=== PATIENT | female | born 1990 | race Caucasian/White ===

== ENCOUNTER 2018-01-22 18:08 | Outpatient (CLI) | payer MEDICAID ==
[2018-01-22 19:36] LABS: APPEARANCE,URINE CLOUDY; BILIRUBIN,URINE NEGATIVE (NEGATIVE); COLOR,URINE YELLOW; GLUCOSE, URINE NEGATIVE (NEGATIVE); KETONES,URINE NEGATIVE (NEGATIVE); LEUKOCYTE ESTERASE,URINE NEGATIVE (NEGATIVE); NITRITE,URINE NEGATIVE (NEGATIVE); PROTEIN,URINE NEGATIVE (NEGATIVE); URINE SPECIFIC GRAVITY 1.011; UROBILINOGEN,URINE NEGATIVE mg/dL (<2.0)
[2018-01-22 19:51] LABS: URINE AMPHETAMINES SCREEN NEGATIVE; URINE BARBITURATES SCREEN NEGATIVE; URINE BENZODIAZEPINES SCREEN NEGATIVE; URINE COCAINE SCREEN NEGATIVE; URINE MARIJUANA (THC) SCREEN NEGATIVE; URINE METHADONE SCREEN NEGATIVE; URINE PHENCYCLIDINE SCREEN NEGATIVE
[2018-01-22 21:13] LABS: CHLAM PCR NOT DETECTED (NOT DETECT); GON PCR NOT DETECTED (NOT DETECT)
== END 2018-01-22 20:40 | disposition home or self-care (01) ==
LOC: LC 18:08
PROVIDERS: ATTEND Obstetrics & Gynecology
PROC: 4A1HXCZ Monitoring of Products of Conception, Cardiac Rate, External Approach (ICD-10-PCS; principal; 2018-01-22)
DX: O26.893 Other specified pregnancy related conditions, third trimester (principal); M54.9 Dorsalgia, unspecified; Z3A.39 39 weeks gestation of pregnancy
CPT/HCPCS: 59025; 80307; 81005; 87081; 87491; 87591

== ENCOUNTER 2018-01-26 06:57 | Inpatient (IN) | payer MEDICAID ==
[2018-01-26] MEDS ORDERED: FENTANYL CITRATE INJ/PF 100 MCG/2 ML AMPUL ONE (07:16)
[2018-01-26] MEDS ORDERED: FENTANYL CITRATE INJ/PF 100 MCG/2 ML AMPUL IV ONE (07:18)
[2018-01-26] MEDS ORDERED: RINGERS SOLUTION,LACTATED 1,000 ML IV ONE (07:19)
[2018-01-26] MEDS ORDERED: RINGERS SOLUTION,LACTATED 1,000 ML IV PRN (07:19)
--- NOTE | 2018-01-26 07:46 | Admission Physical ---
Datetime Report Generated by CPN: 01/26/2018 07:46 CURRENT ADMISSION Chief Complaint: Uterine Contractions Indication for Induction: Not Applicable Admit Impression : Term, Intrauterine ; Active Labor Admit Plan: Admit to Unit; Initiate Labor Protocol ALLERGIES Medication Allergies: No Medication Allergies: No Known Allergies (08/07/2014) Latex: No Latex Allergies Food Allergies: none Environmental Allergies: none OBSTETRICAL HISTORY EDC: 01/25/2018 00:00 : 3 Para: 2 Term: 2 : 0 SAB: 0 IAB: 0 Ectopic: 0 Livin Cesareans: 0 VBACs: 0 Multiple Births: 0 Gestational Diabetes: No Rh Sensitization: No Incompetent Cervix: No LORETTA: No Infertility: No ART Treatment: No Uterine Anomaly: No IUGR: No Hx Previous C/S: No Macrosomia: No Hx Loss/Stillborn: No PIH: No Hx : No Placenta Previa/Abruption: No Depression/PP Depression: No PTL/PROM: No Post Hemorrhage: No Obstetrical History Comments: g1: 2009, 39 weeks, 5#14oz, Female, Vaginal, epidural, no complications g2: 2012, 40 weeks, 6311oz, Male, Vaginal, no anesthesia, no complications SEE RECORDS Alcohol: No Marijuana : No Cocaine: No Other Illicit Drugs: Yes Illicit Drug Comments: Pt has history of heroin and opiate addiction, currently taking subutex Cigarettes: Current Everyday Smoker. 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 Heart Disease: No Hosp/Surgery: Yes Autoimmune Disorder: No Anesthetic Complications: No Kidney Disease: No Abnormal Pap Smear: No Neuro/Epilepsy: Yes Psychiatric Disorders: No Other Medical Diseases: No Hepatitis/Liver Disease: Yes Significant Family History: No Varicosities/Phlebitis: No Trauma/Violence : No Thyroid Dysfunction: No Medical History Comments: Headaches/ falseteeth/hep C INFECTIOUS HISTORY Gonorrhea: No Genital Herpes: No Chlamydia: No Tuberculosis: No Syphilis: No Hepatitis: Yes HIV/AIDS Exposure: No Rash or Viral Illness: No HPV: Yes PHYSICAL EXAM General: Normal HEENT: Normal Neurologic: Normal Thyroid: Deferred Heart: Normal Lungs: Normal Breast: Deferred Back: Normal Abdomen: Normal Genitourinary Exam: Normal Extremities: Normal DTRs: Normal Pelvic Type: Adequate Vital Signs: Reviewed VAGINAL EXAM Dilatation: 9 Effacement: 100 Station: 1 Contraction Comments: q 2-3 MEMBRANES Membranes: Intact FETUS A EGA: 40.1 Monitoring: External US FHR- Baseline: 140 Variability: Moderate 6-25bpm Accelerations: 10X10 Decelerations: None FHR Category: Category I Presentation: Vertex Admit Comment: 27yo at 40+1ega presents in active labor. She was 9cm upon prosentation. GBS negative done at [facility]. Pelvis proven to 6#11oz. Pt has had very limited care. Only one visit at [facility]. H/o IV drug use now on subutex. Hep C positive. ALso with LGSIL pap smear - needs colpo pp. Smoker. H/o PPD. Anticipate . Reviewed pain meds options limited due to advanced dilation. Pt counseled and desires pudendal block. PLANS FOR LABOR AND DELIVERY Labor and Delivery: None Pain Management: None Feeding Preference: Formula Benefit of Breast Feed Discussed: Yes Circumcision: N/A INFORMED CONSENT Informed Consent Obtained: Vaginal Delivery; Risks, Benefits and Alternatives Discussed Signature: with User ID: [email or web address]
[2018-01-26] MEDS ORDERED: DIBUCAINE 1% OINTMENT 28 GM TP PRN (07:53)
[2018-01-26] MEDS ORDERED: PSEUDOEPHEDRINE HCL 30 MG TABLET PO PRN (07:53)
[2018-01-26] MEDS ORDERED: ACETAMINOPHEN 325 MG TABLET PO PRN (07:53)
[2018-01-26] MEDS ORDERED: MAGNESIUM HYDROXIDE SUSP 30 ML UDCUP PO PRN (07:53)
[2018-01-26] MEDS ORDERED: GLYCERIN/WITCH HAZEL LEAF 1 EACH MED..PAD TP PRN (07:53)
[2018-01-26] MEDS ORDERED: NA PHOS,M-B/NA PHOS,DI-BA (ADULT) 133 ML ENEMA PR PRN (07:53)
[2018-01-26] MEDS ORDERED: PROMETHAZINE HCL 25 MG TABLET PO PRN (07:53)
[2018-01-26] MEDS ORDERED: ZOLPIDEM TARTRATE 5 MG TABLET PO PRN (07:53)
[2018-01-26] MEDS ORDERED: PROMETHAZINE HCL 25 MG SUPP.RECT PR PRN (07:53)
[2018-01-26] MEDS ORDERED: DIPHENHYDRAMINE HCL 25 MG CAPSULE PO PRN (07:53)
[2018-01-26] MEDS ORDERED: DIPH/PERTUSS(ACELL)/TETANUS VAC/PF 0.5 ML SYR (>=10YO) IM PRN (07:53)
[2018-01-26] MEDS ORDERED: ACETAMINOPHEN WITH CODEINE #3 TABLET PO PRN (07:53)
[2018-01-26] MEDS ORDERED: MEASLES,MUMPS&RUBELLA VACC/PF 0.5 ML VIAL SUBCUT PRN (07:53)
[2018-01-26] MEDS ORDERED: PROMETHAZINE HCL INJ 25 MG/1 ML VIAL IV PRN (07:53)
[2018-01-26] MEDS ORDERED: BENZOCAINE/MENTHOL AEROSOL SPRAY 56 ML TOP PRN (07:53)
[2018-01-26] MEDS ORDERED: OXYTOCIN/NORMAL SALINE 20 UNIT/1,000 ML RTUINJ IV PRN (07:53)
[2018-01-26] MEDS ORDERED: OXYTOCIN/NORMAL SALINE 20 UNIT/1,000 ML RTUINJ ONE (08:38)
[2018-01-26] MEDS ORDERED: MISOPROSTOL 0.2 MG TABLET ONE (08:38)
[2018-01-26] MEDS ORDERED: LIDOCAINE 1% INJ-PF (10 MG/ML) 30 ML SDV ONE (08:38)
[2018-01-26] MEDS ORDERED: PENICILLIN G-K 5 MILLION UNIT VIAL ONE (08:39)
[2018-01-26] MEDS ORDERED: OXYTOCIN 10 UNIT/ML VIAL ONE (08:39)
[2018-01-26 08:47] LABS: ABSOLUTE BASOPHILS # (AUTO) 0.1 10^3/uL (0.0-0.2); ABSOLUTE EOSINOPHILS # (AUTO) 0.1 10^3/uL (0.0-0.6); ABSOLUTE LYMPHOCYTES (AUTO) 2.2 10^3/uL (0.5-4.7); ABSOLUTE MONOCYTES (AUTO) 0.3 10^3/uL (0.1-1.4); ABSOLUTE NEUT (AUTO) 9.6 10^3/uL (1.7-8.2); BASOPHILS % (AUTO) 0.5 % (0-2); EOSINOPHILS % (AUTO) 0.5 % (0-6); HEMATOCRIT 33.4 % (36.0-47.0); HEMOGLOBIN 10.7 g/dL (12.0-15.5); MEAN CORPUSCULAR HEMOGLOBIN 26.4 pg (27.0-33.4); MEAN CORPUSCULAR HGB CONC 32.1 g/dL (32.0-36.0); MEAN CORPUSCULAR VOLUME 82 fl (80-97); MONOCYTES % (AUTO) 2.5 % (3-13); PLATELET COUNT 168 10^3/uL (150-450); RED BLOOD COUNT 4.05 10^6/uL (3.72-5.28); RED CELL DISTRIBUTION WIDTH 15.5 % (11.5-14.0); SEGMENTED NEUTROPHILS % (AUTO) 78.5 % (42-78); TOTAL CELLS COUNTED % (AUTO) 100 %; WHITE BLOOD COUNT 12.2 10^3/uL (4.0-10.5)
[2018-01-26 09:08] LABS: ALANINE AMINOTRANSFERASE 40 U/L (9-52); ALBUMIN 3.3 g/dL (3.5-5.0); ALKALINE PHOSPHATASE 365 U/L (38-126); ANION GAP 12 (5-19); ASPARTATE AMINO TRANSFERASE 33 U/L (14-36); BILIRUBIN,DIRECT 0.3 mg/dL (0.0-0.4); BILIRUBIN,TOTAL 0.3 mg/dL (0.2-1.3); BLOOD UREA NITROGEN 7 mg/dL (7-20); CALCIUM 8.6 mg/dL (8.4-10.2); CARBON DIOXIDE 18 mmol/L (22-30); CHLORIDE 108 mmol/L (98-107); GLUCOSE 96 mg/dL (75-110); POTASSIUM 4.3 mmol/L (3.6-5.0); SODIUM 137.6 mmol/L (137-145); TOTAL PROTEIN 6.4 g/dL (6.3-8.2)
[2018-01-26 09:37] LABS: APPEARANCE,URINE CLOUDY; BILIRUBIN,URINE NEGATIVE (NEGATIVE); COLOR,URINE RED; GLUCOSE, URINE NEGATIVE (NEGATIVE); KETONES,URINE NEGATIVE (NEGATIVE); LEUKOCYTE ESTERASE,URINE NEGATIVE (NEGATIVE); NITRITE,URINE NEGATIVE (NEGATIVE); PROTEIN,URINE 100 mg/dL (NEGATIVE); URINE SPECIFIC GRAVITY 1.012; UROBILINOGEN,URINE NEGATIVE mg/dL (<2.0)
[2018-01-26] MEDS: PRENATAL VITAMIN W DHA CAPSULE PO SCH (09:45)
[2018-01-26] MEDS: DOCUSATE SODIUM 100 MG CAPSULE PO SCH ×2 (09:45→18:23)
[2018-01-26] MEDS: FERROUS SULFATE 325 MG TABLET PO SCH ×2 (09:45→18:23)
[2018-01-26] MEDS: SENNOSIDES/DOCUSATE 8.6-50 MG 1 EACH TABLET PO SCH (09:45)
[2018-01-26 09:51] LABS: URINE AMPHETAMINES SCREEN NEGATIVE; URINE BARBITURATES SCREEN NEGATIVE; URINE BENZODIAZEPINES SCREEN NEGATIVE; URINE COCAINE SCREEN NEGATIVE; URINE MARIJUANA (THC) SCREEN NEGATIVE; URINE METHADONE SCREEN NEGATIVE; URINE PHENCYCLIDINE SCREEN NEGATIVE
[2018-01-26] MEDS: ACETAMINOPHEN WITH CODEINE #3 TABLET PO PRN ×3 (09:56→20:30)
[2018-01-26] MEDS ORDERED: FAMOTIDINE 20 MG TABLET PO SCH (10:00)
[2018-01-26] MEDS: IBUPROFEN 800 MG TABLET PO SCH ×2 (14:16→21:51)
[2018-01-27] MEDS: ACETAMINOPHEN WITH CODEINE #3 TABLET PO PRN ×2 (00:37→09:19)
[2018-01-27] MEDS: IBUPROFEN 800 MG TABLET PO SCH (05:41)
[2018-01-27 08:25] VITALS: BP 109/77
[2018-01-27 08:44] LABS: HEMATOCRIT 28.2 % (36.0-47.0); HEMOGLOBIN 9.2 g/dL (12.0-15.5); MEAN CORPUSCULAR HEMOGLOBIN 26.6 pg (27.0-33.4); MEAN CORPUSCULAR HGB CONC 32.6 g/dL (32.0-36.0); MEAN CORPUSCULAR VOLUME 82 fl (80-97); PLATELET COUNT 164 10^3/uL (150-450); RED BLOOD COUNT 3.46 10^6/uL (3.72-5.28); RED CELL DISTRIBUTION WIDTH 15.4 % (11.5-14.0)
--- NOTE | 2018-01-27 09:07 | PDOC PROGRESS REPORT ---
Subjective-OB Progress Note for:: 01/27/18 Subjective: Holding baby, want to go home today, does not have any Subutex to take, not sure when baby is going, feels good, bottle feeding, ambulating, scant bleeding Physical Exam (OB) Vital Signs: Temp Pulse Resp BP Pulse Ox 97.8 F 73 16 109/77 98 01/27/18 07:36 01/27/18 07:36 01/27/18 07:36 01/27/18 07:36 01/27/18 07:36 Intake & Output 01/26/18 01/27/18 01/28/18 06:59 06:59 06:59 Intake Total 500 Balance 500 Weight 57.153 kg - PIH/Pre-Eclampsia Headache: Absent - Lochia Lochia Amount: Scant < 10 ml Lochia Color: Rubra/Red - Abdomen Description: Soft, Flat Hernia Present: No Fundal Description: Firm, Midline Fundal Height: u/u - u/2 Objective-Diagnostic Laboratory: 01/27/18 07:30 01/26/18 08:24 01/26/18 01/26/18 01/26/18 08:24 08:24 09:00 WBC RBC Hgb Hct MCV MCH MCHC RDW Plt Count Sodium 137.6 Potassium 4.3 Chloride 108 H Carbon Dioxide 18 L Anion Gap 12 BUN 7 Creatinine 0.43 L Est GFR ( Amer) > 60 Est GFR (Non-Af Amer) > 60 Glucose 96 Calcium 8.6 Total Bilirubin 0.3 AST 33 ALT 40 Alkaline Phosphatase 365 H Total Protein 6.4 Albumin 3.3 L Urine Color RED Urine Appearance CLOUDY Urine pH 6.0 Ur Specific [place] 1.012 Urine Protein 100 H Urine Glucose (UA) NEGATIVE Urine Ketones NEGATIVE Urine Blood LARGE H Urine Nitrite NEGATIVE Ur Leukocyte Esterase NEGATIVE Urine WBC (Auto) 42 Urine RBC (Auto) >182 Blood Type O POSITIVE Antibody Screen NEGATIVE 01/27/18 07:30 WBC 13.0 H RBC 3.46 L Hgb 9.2 L Hct 28.2 L MCV 82 MCH 26.6 L MCHC 32.6 RDW 15.4 H Plt Count 164 Sodium Potassium Chloride Carbon Dioxide Anion Gap BUN Creatinine Est GFR ( Amer) Est GFR (Non-Af Amer) Glucose Calcium Total Bilirubin AST ALT Alkaline Phosphatase Total Protein Albumin Urine Color Urine Appearance Urine pH Ur Specific [place] Urine Protein Urine Glucose (UA) Urine Ketones Urine Blood Urine Nitrite Ur Leukocyte Esterase Urine WBC (Auto) Urine RBC (Auto) Blood Type Antibody Screen Assessment and Plan(PN) - Assessment and Plan (1) Vaginal delivery Is this a current diagnosis for this admission?: Yes (2) Precipitous delivery Is this a current diagnosis for this admission?: Yes (3) Smoker Is this a current diagnosis for this admission?: Yes (4) Limited care Qualifiers: Trimester: unspecified trimester Qualified Code(s): O09.30 - Supervision of with insufficient care, unspecified trimester Is this a current diagnosis for this admission?: Yes (5) complicated by subutex maintenance, antepartum Is this a current diagnosis for this admission?: Yes (6) Low grade squamous intraepith lesion on cytologic smear cervix (lgsil) Is this a current diagnosis for this admission?: Yes (7) Hepatitis C Qualifiers: Viral hepatitis chronicity: unspecified Is this a current diagnosis for this admission?: Yes - Time Spent with Patient Time with patient: Less than 15 minutes Smoking Education Provided: Over 3 minutes Medications reviewed and adjusted accordingly: Yes - Disposition Anticipated Discharge: Home Within: within 24 hours
[2018-01-27] MEDS: SENNOSIDES/DOCUSATE 8.6-50 MG 1 EACH TABLET PO SCH (09:19)
[2018-01-27] MEDS: FERROUS SULFATE 325 MG TABLET PO SCH (09:19)
[2018-01-27] MEDS: DOCUSATE SODIUM 100 MG CAPSULE PO SCH (09:19)
[2018-01-27] MEDS: PRENATAL VITAMIN W DHA CAPSULE PO SCH (09:19)
--- NOTE | 2018-01-27 09:23 | PDOC DISCHARGE SUMMARY ---
Final Diagnosis Discharge Date: 01/27/18 - Final Diagnosis (1) Vaginal delivery Is this a current diagnosis for this admission?: Yes (2) Precipitous delivery Is this a current diagnosis for this admission?: Yes (3) Smoker Is this a current diagnosis for this admission?: Yes (4) Limited care Is this a current diagnosis for this admission?: Yes (5) complicated by subutex maintenance, antepartum Is this a current diagnosis for this admission?: Yes (6) Low grade squamous intraepith lesion on cytologic smear cervix (lgsil) Is this a current diagnosis for this admission?: Yes (7) Hepatitis C Is this a current diagnosis for this admission?: Yes Discharge Data - Discharge Medication Home Medications: Buprenorphine HCl [Subutex 8 mg Sublingual Tablet] 1 tab SL BID 01/22/18 Vit/Iron Fum/Folic AC [ Tablet] 1 each PO DAILY 01/22/18 Gestational Age: 40.1 Reason(s) for Admission: Onset of Labor Procedures: Ultrasound Intrapartum Procedure(s): Spontaneous Vaginal Delivery - [place] Data Baby 1 Female at 1 minute: 9 at 5 minutes: 9 Weight: 2.863 kg Home with Mother: No Complications: Yes - subutex - Diagnosis Test Laboratory: Temp Pulse Resp BP Pulse Ox 97.8 F 73 16 109/77 98 01/27/18 07:36 01/27/18 07:36 01/27/18 07:36 01/27/18 07:36 01/27/18 07:36 01/26/18 01/26/18 01/27/18 08:24 09:00 07:30 RBC 4.05 3.46 L Hgb 10.7 L 9.2 L Hct 33.4 L 28.2 L Urine Opiates Screen NEGATIVE - Discharge information/Instructions Discharge Activity: Activity As Tolerated, No Lifting Over 10 Pounds, Pelvic Rest Discharge Diet: As Tolerated, Regular Disposition: HOME, SELF-CARE Follow up with: [facility] in: 2, Weeks
[2018-01-27 21:07] LABS: HEPATITIS C QUANTITATION 760 IU/mL (.)
[2018-01-28 13:02] LABS: HEPATITIS C LOG10 2.881 (.)
== END 2018-01-27 12:04 | disposition home or self-care (01) | DRG 774 ==
LOC: LC 06:57 → LR 07:02 → 2S 09:20
PROVIDERS: ADMIT Student in an Organized Health Care Education/Training Program; ATTEND Student in an Organized Health Care Education/Training Program
PROC: 10E0XZZ Delivery of Products of Conception, External Approach (ICD-10-PCS; principal; 2018-01-26)
PROC: 4A1HXCZ Monitoring of Products of Conception, Cardiac Rate, External Approach (ICD-10-PCS; 2018-01-26)
DX: O62.3 Precipitate labor (principal); O98.413 Viral hepatitis complicating pregnancy, third trimester; O99.324 Drug use complicating childbirth; F11.20 Opioid dependence, uncomplicated; Z37.0 Single live birth; B19.20 Unspecified viral hepatitis C without hepatic coma; O28.2 Abnormal cytological finding on antenatal screening of mother; O99.334 Smoking (tobacco) complicating childbirth; F17.210 Nicotine dependence, cigarettes, uncomplicated; O99.513 Diseases of the respiratory system complicating pregnancy, third trimester; J45.909 Unspecified asthma, uncomplicated; Z3A.40 40 weeks gestation of pregnancy
CPT/HCPCS: 36415; 80053; 80307; 81001; 85025; 85027; 86592; 86850; 86900; 86901; 87522; J2540; J2590; J3010; J3490

== ENCOUNTER 2019-12-09 21:51 | Emergency (ER) | payer SELFPAY ==
[2019-12-09] MEDS ORDERED: PREDNISONE 20 MG TABLET PO ONE (23:53)
--- NOTE | 2019-12-09 23:54 | ER Document Report ---
HPI - HPI Time Seen by Provider: 12/09/19 23:48 Pain Level: 2 Notes: 29-year-old female patient presenting to the emergency department with 3-week history of cough. She states that she had influenza about 1 week ago. She states that her symptoms have resolved except for her persistent cough. She states she is coughing up yellowish phlegm. She denies any fevers. Does report history of asthma. - REPRODUCTIVE Reproductive: DENIES: : Past Medical History - General Information source: Patient - Social History Smoking Status: Current Every Day Smoker Family History: CVA, DM, Hypertension, Malignancy, Thyroid Disfunction Patient has suicidal ideation: No Patient has homicidal ideation: No Pulmonary Medical History: Reports: Hx Asthma Neurological Medical History: Reports: Hx Migraine Musculoskeletal Medical History: Reports Hx Arthritis, Reports Hx Musculoskeletal Deformity, Reports Hx Musculoskeletal Trauma Psychiatric Medical History: Reports: Hx Anxiety, Hx Depression Past Surgical History: Reports: Hx Oral Surgery - Most teeth due to decay - Immunizations Immunizations up to date: Yes Hx Diphtheria, Pertussis, Tetanus Vaccination: Yes Vertical Provider Document - CONSTITUTIONAL Notes: PHYSICAL EXAMINATION: GENERAL: Well-appearing, well-nourished and in no acute distress. HEAD: Atraumatic, normocephalic. EYES: Pupils equal round extraocular movements intact, conjunctiva are normal. ENT: Nares patent NECK: Normal range of motion LUNGS: No respiratory distress, lung sounds clear and equal bilaterally. Musculoskeletal: Normal range of motion NEUROLOGICAL: Normal speech, normal gait. PSYCH: Normal mood, normal affect. SKIN: Warm, Dry, normal turgor, no rashes or lesions noted. - INFECTION CONTROL TRAVEL OUTSIDE OF THE [place] IN LAST 30 DAYS: No Course - Re-evaluation Re-evalutation: Patient appears well, nontoxic. Lung sounds clear and equal bilaterally. Vital signs within normal limits. Will start patient on prednisone. I did discuss the option of getting a chest x-ray with the patient although she is young, healthy and has had no fever so I feel it is unlikely that she has a pneumonia. I educated her that the upper respiratory virus with the cough is lasting upwards of 1 month. Patient is agreeable to discharge home on prednisone and continue taking guaifenesin. - Vital Signs Vital signs: Temp Pulse Resp BP Pulse Ox 98.4 F 103 H 16 102/69 98 12/09/19 22:30 12/09/19 22:30 12/09/19 22:30 12/09/19 22:30 12/09/19 22:30 Discharge - Discharge Clinical Impression: Viral upper respiratory infection Condition: Stable Disposition: HOME, SELF-CARE Additional Instructions: Your symptoms are most likely due to a viral infection it should resolve over the next 7-14 days. You should take [id number] guanfacine per bottle instructions to help thin the mucus. For nasal congestion: I would recommend that you get [id number] oxymetazoline also known is afrin. Use only per bottle instructions and be sure to never use this for more than 3 days if you can develop severe rebound congestion. You may also use tylenol or ibuprofen as needed for aches and thorat discomfort. Please be sure to drink plenty of fluids and get rest. Return to the emergency department he began having difficulty breathing, chest pain, persistent vomiting, or any other symptoms that are concerning to you. Prescriptions: Prednisone [Deltasone 20 mg Tablet] 3 tab PO DAILY 4 Days #12 tablet Forms: Return to Work Referrals: ARNOLDO CHAHAL MD [PEDIATRICS] - Follow up as needed
[2019-12-09 23:56] VITALS: BP 105/72
== END 2019-12-10 00:08 | disposition home or self-care (01) ==
LOC: ER 21:51
DX: J06.9 Acute upper respiratory infection, unspecified (principal); B97.89 Other viral agents as the cause of diseases classified elsewhere; F17.200 Nicotine dependence, unspecified, uncomplicated; J45.909 Unspecified asthma, uncomplicated
CPT/HCPCS: 99283; J7512

== ENCOUNTER 2020-01-13 21:20 | Emergency (ER) | payer SELFPAY ==
[2020-01-13 21:28] VITALS: BP 95/62
--- NOTE | 2020-01-13 21:53 | ER Document Report ---
ED General - General Chief Complaint: Other Stated Complaint: NEEDS A DR NOTE FOR WORK Time Seen by Provider: 01/13/20 21:45 Notes: 29-year-old female who had nausea and diarrhea for 2 days, it stopped 2 days ago and she is now completely asymptomatic presents the emergency department because she works in the food and nutrition teacher industry and is not allowed to return without a work note per her boss. Denies blood, denies pain currently or previously, denies current symptoms. TRAVEL OUTSIDE OF THE [place] IN LAST 30 DAYS: No - Related Data Allergies/Adverse Reactions: No Known Allergies Allergy (Verified 01/26/18 08:20) Past Medical History - General Information source: Patient - Social History Smoking Status: Current Every Day Smoker Frequency of alcohol use: None Drug Abuse: None Family History: CVA, DM, Hypertension, Malignancy, Thyroid Disfunction Patient has suicidal ideation: No Patient has homicidal ideation: No Pulmonary Medical History: Reports: Hx Asthma Neurological Medical History: Reports: Hx Migraine Musculoskeletal Medical History: Reports Hx Arthritis, Reports Hx Musculoskeletal Deformity, Reports Hx Musculoskeletal Trauma Psychiatric Medical History: Reports: Hx Anxiety, Hx Depression Past Surgical History: Reports: Hx Oral Surgery - Most teeth due to decay - Immunizations Immunizations up to date: Yes Hx Diphtheria, Pertussis, Tetanus Vaccination: Yes Review of Systems - Review of Systems Constitutional: No symptoms reported EENT: No symptoms reported Cardiovascular: No symptoms reported Respiratory: No symptoms reported Gastrointestinal: See HPI Physical Exam - Vital signs Vitals: Temp Pulse Resp BP Pulse Ox 98.1 F 105 H 17 95/62 L 100 01/13/20 21:24 01/13/20 21:24 01/13/20 21:24 01/13/20 21:24 01/13/20 21:24 Interpretation: Tachycardic - Notes Notes: GENERAL: Alert, interacts well. No acute distress. HEAD: Normocephalic, atraumatic EYES: Pupils equal, round and reactive to light, extraocular movements intact. ENT: Oral mucosa moist, tongue midline. NECK: Full range of motion, supple, trachea midline. LUNGS: Clear to auscultation bilaterally, no wheezes, rales or rhonchi, no respiratory distress. HEART: Regular rate and rhythm, no murmurs, gallops, rubs. ABDOMEN: Soft, nontender, nondistended, bowel sounds present in all 4 quadrants. EXTREMITIES: Moves all 4 extremities spontaneously. NEUROLOGICAL: Alert and oriented x3, normal speech. PSYCH: Normal mood, normal affect. SKIN: Warm, Dry, normal turgor, no rashes or lesions noted. Course - Re-evaluation Re-evalutation: 01/13/20 21:51 Patient is completely asymptomatic, all symptoms resolved 2 days ago. No indication for blood work at this time. Patient is quite small, suspect her blood pressure is normal for her. Will be discharged home and cleared for work. 01/13/20 21:51 Discussed with patient that if she develops recurrent nausea she may want to consider taking a test. Patient is agreeable to buying an [id number] test if nausea returns. - Vital Signs Vital signs: Temp Pulse Resp BP Pulse Ox 98.1 F 105 H 17 95/62 L 100 01/13/20 21:24 01/13/20 21:24 01/13/20 21:24 01/13/20 21:24 01/13/20 21:24 Discharge - Discharge Clinical Impression: Nausea alone Diarrhea Qualifiers: Diarrhea type: unspecified type Qualified Code(s): R19.7 - Diarrhea, unspecified Condition: Stable Disposition: HOME, SELF-CARE Forms: Return to Work
== END 2020-01-13 22:00 | disposition home or self-care (01) ==
LOC: ER 21:20
DX: R19.7 Diarrhea, unspecified (principal); R11.0 Nausea; F17.200 Nicotine dependence, unspecified, uncomplicated
CPT/HCPCS: 99281

== ENCOUNTER 2020-06-22 18:52 | Emergency (ER) | payer SELFPAY ==
--- NOTE | 2020-06-22 19:33 | ER Document Report ---
ED Medical Screen (RME) - General Chief Complaint: Insect Bite Stated Complaint: INSECT BITE Time Seen by Provider: 06/22/20 19:25 Notes: Patient is a 29-year-old female who presents emergency department with a chief complaint of right hand pain and swelling. Patient states that she was possibly bit by a bug about 4 days ago. This morning she had a fever of 102. It went down to 101. Patient states that she also notes some streaking to her right forearm and upper arm. Exam: Erythema noted to her right fourth digit and right hand. Streaking noted up right forearm and right upper arm. I have greeted and performed a rapid initial assessment of this patient. A comprehensive ED assessment and evaluation of the patient, analysis of test results and completion of medical decision making process will be conducted by an additional ED providers. TRAVEL OUTSIDE OF THE [place] IN LAST 30 DAYS: No - Related Data Allergies/Adverse Reactions: No Known Allergies Allergy (Verified 01/26/18 08:20) Past Medical History Pulmonary Medical History: Reports: Hx Asthma Neurological Medical History: Reports: Hx Migraine Musculoskeltal Medical History: Reports Hx Arthritis, Reports Hx Musculoskeletal Deformity, Reports Hx Musculoskeletal Trauma Psychiatric Medical History: Reports: Hx Anxiety, Hx Depression Past Surgical History: Reports: Hx Oral Surgery - Most teeth due to decay - Immunizations Immunizations up to date: Yes Hx Diphtheria, Pertussis, Tetanus Vaccination: Yes
[2020-06-22 19:35] VITALS: BP 108/73
== END 2020-06-22 21:44 | disposition left against medical advice (07) ==
LOC: ER 18:52
DX: S60.561A Insect bite (nonvenomous) of right hand, initial encounter (principal); W57.XXXA Bitten or stung by nonvenomous insect and other nonvenomous arthropods, initial encounter
CPT/HCPCS: 99281